=== PATIENT | male | born 2000 | race Caucasian/White ===

== ENCOUNTER 2019-10-23 13:43 | Emergency (ER) | payer BC, SELFPAY ==
[2019-10-23] VITALS (15 sets, daily range): BP systolic 116–136; BP diastolic 64–78; PULSE 60–80; RESP 12–18; TEMP 36.6–36.8; O2SAT 98–100; BMI 20.6
--- NOTE | 2019-10-23 14:06 | PC.NURSE ---
lab at bedside
[2019-10-23 14:18] LABS: Basophils # 0.1 K/mm3 (0-0.2); Basophils % 0.9 % (0.1-2.0); Eosinophils # 0.1 K/mm3 (0.0-0.4); Eosinophils % 1.5 % (0.1-12.0); Hematocrit 43.4 % (42.0-52.0); Hemoglobin 15.2 g/dL (14.1-18.0); Lymphocytes # 1.4 K/mm3 (0.7-4.5); Lymphocytes % 21.2 % (10-50); Mean Corpuscular HGB Conc 35.1 g/dL (31.8-35.4); Mean Corpuscular Hemoglobin 30.8 pg (27.0-31.2); Mean Corpuscular Volume 87.6 fl (80-94); Mean Platelet Volume 7.4 fl (7.4-10.4); Monocytes # 0.3 K/mm3 (0.1-1.0); Monocytes % 5.2 % (1.7-9.3); Neutrophils # 4.6 K/mm3 (1.8-7.8); Neutrophils % 71.3 % (37.0-80.0); Platelet Count 241 K/mm3 (142-424); Red Blood Count 4.95 M/mm3 (4.60-6.20); Red Cell Distribution Width 13.3 % (11.5-17.5); White Blood Count 6.5 K/mm3 (4.8-10.8)
[2019-10-23 14:24] LABS: Alanine Aminotransferase 11 U/L (12-78); Albumin Level 5.4 g/dl (3.5-5.0); Albumin/Globulin Ratio 1.9 (1.1-1.8); Alkaline Phosphatase 97 U/L (38-126); Anion Gap 9.4 mEq/L (5-15); Aspartate Amino Transferase 24 U/L (17-59); Bilirubin,Total 1.3 mg/dl (0.2-1.3); Blood Urea Nitrogen 19 mg/dl (9-20); Calcium 10.7 mg/dl (8.4-10.2); Carbon Dioxide 29 mmol/L (22.0-30.0); Chloride 105 mmol/L (98-107); Creatinine Clearance Estimated 137 mL/min (50-200); Estimated Glomerular Filt Rate 107 ml/min (>60); GFR (African American) 129 ML/MIN (>60); Globulin 2.8 g/dL (1.3-3.2); Glucose 100 mg/dl (74-100); Potassium 4.4 mmoL/L (3.5-5.1); Sodium 139 mmol/L (136-145); Total Protein,Serum 8.2 g/dl (6.3-8.2)
[2019-10-23 14:50] LABS: Microscopic, Urine URINE MICROSCOPIC (MICROSCOPIC)
[2019-10-23 14:51] LABS: Appearance,Urine CLOUDY (Clear); Bilirubin,Urine Negative (Negative); Blood, Urine Negative (Negative); Color,Urine YELLOW (Yellow); Glucose,Urine (UA) Negative (Negative); Ketones,Urine Negative (Negative); Leukocyte Esterase,Urine Negative (Negative); Nitrate,Urine Negative (Negative); Protein,Urine TRACE (Negative); Urobilinogen,Urine 0.2 EU/dl (0.2)
[2019-10-23 15:03] LABS: Barbiturates Screen,Urine Negative ng/ml (<200); Benzodiazepines Screen,Urine Negative ng/ml (<200)
[2019-10-23 15:04] LABS: Amphetamine/Metha Screen,Urine Negative ng/ml (<1000)
[2019-10-23 15:05] LABS: Cannabinoid Screen,Urine Positive ng/ml (<50); Cocaine Screen,Urine Negative ng/ml (<300); RBC,Urine Occasional #/hpf (0-3); Squamous Epithelial Cell,Urine Occasional #/hpf (0-5)
[2019-10-23 15:06] LABS: Methadone Screen,Urine Negative ng/ml (<300)
[2019-10-23 15:07] LABS: Opiate Screen,Urine Negative ng/ml (<300); Phencyclidine Screen,Urine Negative ng/ml (<25)
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
--- NOTE | 2019-10-23 15:58 | PC.NURSE ---
[facility] called , paperwork faxed. Dr Johnson spoke with Dr Garcia pt to be sent to [place].
--- NOTE | 2019-10-23 16:01 | PC.NURSE ---
[place] [employer] called for transport.
--- NOTE | 2019-10-23 16:08 | PC.NURSE ---
pt eating a sandwich at this time
--- NOTE | 2019-10-23 16:24 | PC.NURSE ---
[facility] advised [facility] would be coming to transport pt to [facility].
--- NOTE | 2019-10-23 16:37 | PC.NURSE ---
contacted [facility] to give report, spoke with kolby who states when she spoke with Jeri she gave her all the information needed.
--- NOTE | 2019-10-23 16:42 | PC.NURSE ---
went in to have pt sign transfer paperwork, pt became upset about going to [facility] today-states he is wanting to see his son. Pt requests a phone to call him mom to tell her what is going on.
--- NOTE | 2019-10-23 16:44 | PC.NURSE ---
pt calling his mother at this time
--- NOTE | 2019-10-23 17:07 | PC.NURSE ---
pt on phone with his mother
--- NOTE | 2019-10-23 18:18 | PC.NURSE ---
Pt on phone with sister
== END 2019-10-23 18:10 ==
PROVIDERS: Emergency Provider Emergency Medicine; PCP Family Medicine
DX: T14.91XA Suicide attempt, initial encounter (principal); F17.210 Nicotine dependence, cigarettes, uncomplicated; F12.10 Cannabis abuse, uncomplicated
CPT/HCPCS: 36415; 80053; 80305; 81001; 85025; 99284

== ENCOUNTER → 2020-10-04 13:02 | Outpatient (CLI) | payer BC, SELFPAY ==
--- NOTE | 2020-10-04 13:11 | CT_ITS ---
PROCEDURE: CT ABDOMEN PELVIS WO CON CLINICAL INDICATION: BILATERAL FLANK PAIN, HEMATURIA,DYSURIA COMPARISON: No exams were available for comparison TECHNIQUE: Axial images obtained with sagittal and coronal reformats. All CT scans at the facility use one or more dose reduction, viz: automated exposure control, ma/kV adjustment per patient size (including targeted exams where dose is matched to indication, i.e. head), or iterative reconstruction technique. FINDINGS: LOWER THORAX: No acute finding ABDOMEN & PELVIS: Liver, gallbladder, spleen, adrenal glands, and pancreas have an unremarkable unenhanced appearance. The gastric wall appears thickened which could be due to nondistention or inflammation. The inferior vena cava somewhat prominent measuring 3.4 cm in diameter. No renal or ureteral calculi or hydronephrosis. Faint wisps of increased density are present at the cortical medullary junction of both kidneys and may be seen with early or mild medullary nephrocalcinosis. No intestinal obstruction or free air. No evidence of appendicitis No pelvic mass or abnormal fluid collection. No acute bony findings. IMPRESSION: 1. No acute finding. No evidence of renal or ureteral calculi. 2. Faint wisps of increased density are present at the cortical medullary junction of both kidneys and may be seen with early or mild medullary nephrocalcinosis. 3. Mild enlargement of the inferior vena cava at 3.4 cm of questionable clinical significance 4. Mild diffuse thickening of the stomach. This is nonspecific and may be due to nondistention. Gastritis would be an additional consideration. Neoplasm is also included in the differential but less likely due to patient's age. Dictated by: Joaquin Del Castillo MD 10/04/2020 14:06 Joaquin Del Castillo MD in [place] 10/04/2020 14:06
== END ==
PROVIDERS: PCP Nurse Practitioner; Visit Provider Nurse Practitioner
DX: R10.9 Unspecified abdominal pain (principal); R31.9 Hematuria, unspecified; R30.0 Dysuria
CPT/HCPCS: 74176

== ENCOUNTER → 2022-04-14 15:29 | Outpatient (CLI) | payer BC, SELFPAY | PROVIDERS: PCP Nurse Practitioner; Visit Provider Nurse Practitioner | DX: L02.214 Cutaneous abscess of groin (principal); L03.314 Cellulitis of groin; B95.7 Other staphylococcus as the cause of diseases classified elsewhere | CPT/HCPCS: 87070; 87077; 87186; 87205 ==

== ENCOUNTER 2023-09-28 18:00 | Outpatient (CLI) | payer BC, SELFPAY ==
[2023-09-28 18:58] LABS: Basophils # 0.1 K/mm3 (0-0.2); Basophils % 0.6 % (0.1-2.0); Eosinophils # 0.1 K/mm3 (0.0-0.4); Eosinophils % 0.7 % (0.1-12.0); Hematocrit 43.3 % (42.0-52.0); Hemoglobin 14.3 g/dL (14.1-18.0); Lymphocytes # 1.2 K/mm3 (0.7-4.5); Lymphocytes % 14.3 % (10-50); Mean Corpuscular HGB Conc 32.9 g/dL (31.8-35.4); Mean Corpuscular Hemoglobin 29.4 pg (27.0-31.2); Mean Corpuscular Volume 89.3 fl (80-94); Mean Platelet Volume 7.8 fl (7.4-10.4); Monocytes # 0.5 K/mm3 (0.1-1.0); Monocytes % 5.2 % (1.7-9.3); Neutrophils # 6.8 K/mm3 (1.8-7.8); Neutrophils % 79.2 % (37.0-80.0); Platelet Count 250 K/mm3 (142-424); Red Blood Count 4.85 M/mm3 (4.60-6.20); Red Cell Distribution Width 13.2 % (11.5-17.5); White Blood Count 8.6 K/mm3 (4.8-10.8)
[2023-09-28 20:28] LABS: C-Reactive Protein 5.1 mg/L (0-4)
[2023-09-28 20:37] LABS: Erythrocyte Sedimentation Rate 10 mm/hr (0-15)
[2023-09-30 15:29] LABS: Lyme Ab CIA Negative (Negative)
== END 2023-09-28 23:59 | disposition home or self-care (01) ==
LOC: LAB.DROPOF 09-29 08:01
PROVIDERS: PCP Nurse Practitioner; Visit Provider Nurse Practitioner
DX: L08.9 Local infection of the skin and subcutaneous tissue, unspecified (principal); S30.861A Insect bite (nonvenomous) of abdominal wall, initial encounter; W57.XXXA Bitten or stung by nonvenomous insect and other nonvenomous arthropods, initial encounter
CPT/HCPCS: 85025; 85651; 86140; 86618

== ENCOUNTER 2024-06-20 00:46 | Emergency (ER) | payer BC, SELFPAY ==
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
--- NOTE | 2024-06-20 01:21 | XR_ITS ---
PROCEDURE INFORMATION: Exam: XR Abdomen Exam date and time: 06/20/2024 1:04 AM Age: 23 years old Clinical indication: Other: Og tub placement TECHNIQUE: Imaging protocol: Radiologic exam of the abdomen. Views: Frontal supine view of the abdomen. 1 View. COMPARISON: CT ABDOMEN PELVIS WO CON 10/04/2020 1:19 PM FINDINGS: Tubes, catheters and devices: Nasogastric tube tip in the gastric lumen. Gastrointestinal tract: Normal. No bowel dilation. Bones/joints: Unremarkable. IMPRESSION: Nasogastric tube tip in the gastric lumen.
--- NOTE | 2024-06-20 01:21 | XR_ITS ---
PROCEDURE INFORMATION: Exam: XR Chest Exam date and time: 06/20/2024 12:56 AM Age: 23 years old Clinical indication: Device placement; Other: Intubated TECHNIQUE: Imaging protocol: Radiologic exam of the chest. Views: 1 view. COMPARISON: CR CXR1VP XR chest portable 12/09/2017 6:35 PM FINDINGS: Tubes, catheters and devices: Endotracheal tube tip within the right mainstem bronchus. Nasogastric tube tip not visualized. Lungs: Unremarkable. No consolidation. Pleural spaces: Unremarkable. No pleural effusion. No pneumothorax. Heart/Mediastinum: Unremarkable. No cardiomegaly. Bones/joints: Unremarkable. IMPRESSION: Endotracheal tube tip is in the right mainstem bronchus and should be withdrawn 3-5 cm for optimal positioning.
[2024-06-20 01:24] VITALS: BP 95/81; PULSE 124; RESP 24; TEMP -17.7; TEMP 0
[2024-06-20 01:27] VITALS: BP 110/83; BP 79/61; BP 95/81
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
--- NOTE | 2024-06-20 01:59 | PC.NURSE ---
Patient fully loaded at 00:24 and out the door via ems at 0030
--- NOTE | 2024-06-20 02:54 | PC.NURSE ---
PATIENT ARRIVED VIA EMS AT 0047, UNABLE TO BACK TIME IN SYSTEM. PATIENT WAS D/C WITH [facility] AT 0130 IN ROUTE TO .
== END 2024-06-20 02:00 | disposition short-term general hospital (02) ==
PROVIDERS: Emergency Provider Emergency Medicine
DX: S01.80XA Unspecified open wound of other part of head, initial encounter (principal); S06.9XAA Unspecified intracranial injury with loss of consciousness status unknown, initial encounter; S02.91XA Unspecified fracture of skull, initial encounter for closed fracture; Y93.89 Activity, other specified; Y92.008 Other place in unspecified non-institutional (private) residence as the place of occurrence of the external cause
CPT/HCPCS: 71045; 74018; 92950; 99291; P9016